=== PATIENT | female | born 1955 | race Caucasian/White ===

== ENCOUNTER 2021-09-08 16:55 | Emergency (ER) | payer OTHER, MEDICAID ==
[~2021-09-08] VITALS: Ht 165.1 cm; Wt 37.3 kg
[~2021-09-08 16:55] MED LIST: AZIT250T11 PO; DEXA6TAB1 PO; HEPA500056 SUBQ; VITC500 PO; ZINC220C28 PO
[2021-09-08 17:03] VITALS: BP 116/73
[2021-09-08 18:49] VITALS: BP 120/77
== END 2021-09-08 18:49 | disposition home or self-care (01) ==
LOC: MED 16:55
DX: R10.9 Unspecified abdominal pain (principal); R19.7 Diarrhea, unspecified; I10 Essential (primary) hypertension; Z98.890 Other specified postprocedural states; Z79.899 Other long term (current) drug therapy; Z79.2 Long term (current) use of antibiotics; Z88.8 Allergy status to other drugs, medicaments and biological substances
CPT/HCPCS: 99284

== ENCOUNTER 2021-12-10 00:36 | Inpatient (IN) | payer OTHER, MEDICAID ==
[~2021-12-10] VITALS: Ht 162.6 cm; Wt 58.5 kg
[2021-12-10 00:36] VITALS: BP 158/82
--- NOTE | 2021-12-10 00:44 | NUR ---
PT LISSETH AND TAKEN TO ER BED AT THIS TIME
--- NOTE | 2021-12-10 01:10 | NUR ---
ERMD AT BEDSIDE EXAMINING PT
--- NOTE | 2021-12-10 02:15 | NUR ---
66 Y/O FEMALE BIBA FROM SNF. C/O G-TUBE MALFUNCTION. PT PULLED OUT G-TUBE AND PT WAS SENT TO ER FOR G-TUBE REPLACEMENT OF "QUETA" TYPE G-TUBE. PT HAS COGNITIVE DISABILITIES AND NON AMBULATORY. A/OX0 NFP. UNLABORED BREATHING.
[2021-12-10 03:06] LABS: BASOPHILS % (AUTO) 0.2 % (0.0-2.0); EOSINOPHILS # (AUTO) 0.2 K/uL (0-0.4); EOSINOPHILS % (AUTO) 2.1 % (0.0-4.0); HEMATOCRIT 35.7 % (36-48); HEMOGLOBIN 12.1 g/dL (12.0-16.0); LYMPHOCYTES # (AUTO) 1.3 K/uL (2.5-16.5); LYMPHOCYTES % (AUTO) 13.9 % (20.5-51.1); MEAN CORPUSCULAR HEMOGLOBIN 33 pg (27-31); MEAN CORPUSCULAR HGB CONC 34 g/dL (33-37); MEAN CORPUSCULAR VOLUME 96.7 fL (80-94); MONOCYTES # (AUTO) 1.1 K/uL (0.8-1.0); MONOCYTES % (AUTO) 11.3 % (1.7-9.3); NEUTROPHILS # (AUTO) 6.7 K/uL (1.8-7.7); NEUTROPHILS % (AUTO) 72.5 % (42.2-75.2); PLATELET COUNT (AUTO) 237 K/uL (140-450); RED BLOOD CELL COUNT(AUTO) 3.69 MIL/uL (4.20-5.40); RED CELL DISTRIBUTION WIDTH 13.8 % (11.6-13.7); WHITE BLOOD COUNT (AUTO) 9.3 K/uL (4.8-10.8)
--- NOTE | 2021-12-10 03:35 | NUR ---
UNABLE TO REPLACE G-TUBE WITH EXACT REPLACEMENT. EQUIPMENT PLACED IN ORDER TO MAINTAIN STOMA.
[2021-12-10 03:47] LABS: ANION GAP 8.9 (8-16); CARBON DIOXIDE 33.8 mmol/L (21-32); CREATININE 0.6 mg/dL (0.6-1.3); POTASSIUM 4.7 mmol/L (3.5-5.1)
[2021-12-10] MEDS ORDERED: IMO2 PO (06:10)
[2021-12-10] MEDS ORDERED: LACT-103 PO (06:10)
[2021-12-10] MEDS ORDERED: LORA10TA19 PO (06:10)
[2021-12-10] MEDS ORDERED: FAMO-92 PO (06:10)
[2021-12-10] MEDS ORDERED: MELA10CA PO (06:10)
[2021-12-10] MEDS ORDERED: ONDA-188 PO (06:10)
[2021-12-10] MEDS ORDERED: SIMV-372 PO (06:10)
[2021-12-10] MEDS ORDERED: CALC-1646 PO (06:10)
[2021-12-10] MEDS ORDERED: MIRABULK PO (06:10)
[2021-12-10] MEDS ORDERED: KEN.025C TP (07:09)
[2021-12-10] MEDS ORDERED: DIPH25TA53 GT (07:09)
[2021-12-10] MEDS ORDERED: ROB PO (07:09)
[2021-12-10] MEDS ORDERED: ACET-2619 GT (07:09)
[2021-12-10] MEDS ORDERED: MENT1OIN22 TP (07:09)
[2021-12-10] MEDS ORDERED: DOCO1CRE TP (07:09)
--- NOTE | 2021-12-10 07:19 | NUR ---
Pt report given to RIAN MCDERMOTT. Transfer of care at this time.
--- NOTE | 2021-12-10 07:29 | NUR ---
RECEIVED REPORT FROM ENDER MODI. PT CALM AND AWAKE. VITALS STABLE
--- NOTE | 2021-12-10 07:43 | NUR ---
IV ESTABLISHED ON R AC 22G
[2021-12-10] MEDS ORDERED: ONDANSETRON 4 MG/2 ML VIAL IM/IVP PRN (08:05)
[2021-12-10] MEDS ORDERED: HYDROcodone/APAP 7.5/325 MG 1 TAB PO PRN (08:05)
[2021-12-10] MEDS ORDERED: guaiFENesin DM 200/20 MG-10 ML 10 ML UDC PO PRN (08:05)
[2021-12-10] MEDS ORDERED: ZOLPIDEM 5 MG TAB PO PRN (08:05)
[2021-12-10] MEDS ORDERED: ACETAMINOPHEN 325 MG TAB PO PRN (08:05)
[2021-12-10] MEDS ORDERED: HALOPERIDOL IM 5 MG/ML VIAL IM ONE (08:05)
[2021-12-10] MEDS ORDERED: LORazepam 2 MG/ML VIAL ONE (08:17)
[2021-12-10] MEDS ORDERED: LORazepam 1 MG TAB PO PRN (08:20)
[2021-12-10] MEDS ORDERED: DOCUSATE 100 MG/10 ML UDC PO PRN (08:20)
[2021-12-10] MEDS ORDERED: POTASSIUM CHLORIDE 20% 40 MEQ/15 ML UDC PO PRN (08:20)
[2021-12-10] MEDS: LORazepam 2 MG/ML VIAL IVP PRN ×2 (08:28→15:59)
[2021-12-10] MEDS: NACL 0.9% 1,000 ML IV SCH (08:37)
--- NOTE | 2021-12-10 09:02 | NUR ---
PT CALM AND SLEEPING, ON MONITOR. VSS
[2021-12-10 12:34] LABS: AMYLASE 32 U/L (25-115); CHOL/HDL RATIO 2.4 (1-4.5); FREE T4 (FREE THYROXINE) 2.41 ng/dL (0.76-1.46); HDL CHOLESTEROL 67 mg/dL (40-60); LDL (CALC) 81 mg/dL (60-100); LIPASE 136 U/L (73-393); MAGNESIUM 1.9 mg/dL (1.8-2.4); PHOSPHORUS 4.6 mg/dL (2.5-4.9); THYROID STIMULATING HORMONE 2.84 uIU/mL (0.34-3.74); TRIGLYCERIDES 62 mg/dL (30-150)
[2021-12-10 12:49] LABS: PROTHROMBIN TIME 10.2 secs (10.8-13.4)
--- NOTE | 2021-12-10 14:09 | NUR ---
PATIENT HAS BEEN SCREENED AND CATEGORIZED HIGH NUTRITION RISK. PATIENT WILL BE SEEN WITHIN 1-2 DAYS OF ADMISSION. / JOE[address]
--- NOTE | 2021-12-10 16:01 | NUR ---
Patient came from ER. Agitated and restless. AxOx0. Moaning. Not coherent. Ativan PRN IVP given.
--- NOTE | 2021-12-10 17:25 | NUR ---
P.T. NOTES P.T. EVAL COMPLETED; REFER TO EVAL FOR DETAILS.
--- NOTE | 2021-12-10 19:20 | NUR ---
RECEIVED PT FROM AM NURSE FOR CONTINUITY OF CARE.PT IS STABLE
[2021-12-10 20:00] VITALS: BP 129/60
--- NOTE | 2021-12-10 21:30 | NUR ---
ALL MEDICATIONS GIVEN AT THIS TIME,NO ADVERSE REACTIONS NOTED
--- NOTE | 2021-12-11 01:00 | NUR ---
PATIENT ASLEEP,BREATHING EVEN AND UNLABORED.ALL SAFETY MEASURES IN PLACE
[2021-12-11] MEDS: NACL 0.9% 1,000 ML IV SCH (01:34)
--- NOTE | 2021-12-11 03:00 | NUR ---
CLEANED AND REPOSITIONED THE PT ,TOLERATED WELL,NO DISTRESS NOTED
[2021-12-11 04:00] VITALS: BP 130/59
[2021-12-11] MEDS: LORazepam 2 MG/ML VIAL IVP PRN (04:03)
--- NOTE | 2021-12-11 06:00 | NUR ---
PT ASLEEP/ALL SAFETY MEASURES IN PLACE,NO DISTRESS NOTED
[2021-12-11 06:17] LABS: BASOPHILS % (AUTO) 0.3 % (0.0-2.0); EOSINOPHILS # (AUTO) 0.3 K/uL (0-0.4); EOSINOPHILS % (AUTO) 3.8 % (0.0-4.0); HEMATOCRIT 36.9 % (36-48); HEMOGLOBIN 12.3 g/dL (12.0-16.0); LYMPHOCYTES # (AUTO) 1.2 K/uL (2.5-16.5); LYMPHOCYTES % (AUTO) 14.7 % (20.5-51.1); MEAN CORPUSCULAR HEMOGLOBIN 33 pg (27-31); MEAN CORPUSCULAR HGB CONC 33 g/dL (33-37); MEAN CORPUSCULAR VOLUME 97.9 fL (80-94); MONOCYTES # (AUTO) 0.7 K/uL (0.8-1.0); MONOCYTES % (AUTO) 8.5 % (1.7-9.3); NEUTROPHILS # (AUTO) 6.2 K/uL (1.8-7.7); NEUTROPHILS % (AUTO) 72.7 % (42.2-75.2); PLATELET COUNT (AUTO) 216 K/uL (140-450); RED BLOOD CELL COUNT(AUTO) 3.77 MIL/uL (4.20-5.40); RED CELL DISTRIBUTION WIDTH 14.1 % (11.6-13.7); WHITE BLOOD COUNT (AUTO) 8.5 K/uL (4.8-10.8)
[2021-12-11 06:20] LABS: ANION GAP 12.5 (8-16); CARBON DIOXIDE 26.8 mmol/L (21-32); CREATININE 0.5 mg/dL (0.6-1.3); POTASSIUM 4.3 mmol/L (3.5-5.1)
[2021-12-11 08:00] VITALS: BP 120/67
[2021-12-11 08:08] LABS: T4 (THYROXINE) 8.6 ug/dL (4.5-12.0)
--- NOTE | 2021-12-11 09:15 | NUR ---
GOT REPORT FROM THE NIGHT NURSE, PT IS SLEEPING,NO SOB.[id number] Addendum: 12/11/21 at 0920 by Tejinder Strickland RN THE ABOVE REPORT WAS AT 0800
[2021-12-11] MEDS: DEXT 5% / NACL 0.9% 500 ML IV SCH ×2 (11:28→19:35)
[2021-12-11 12:00] VITALS: BP 120/67
[2021-12-11 16:00] VITALS: BP 115/62
--- NOTE | 2021-12-11 18:03 | NUR ---
THE DC ORDERED PUT IN BY MISTAKE, STOPPED IT NOW.[id number]
--- NOTE | 2021-12-11 19:30 | NUR ---
RECEIVED REPORT FROM DAY SHIFT NURSE FOR CONTINUITY OF CARE. PATIENT IS A&O X0. PATIENT IS ON ROOM AIR, BREATHING IS NORMAL WITH SYMMETRICAL RISE AND FALL OF CHEST. IV IS A 20G ON LFA, RUNNING D5 NS 0.9 AT 60ML. PATIENT IS SITTING UP IN BED MAKING INCOMPREHENSIBLE NOISES. PATIENT IS SAFE, STAYING IN BED. BED IS IN LOWEST POSITION, WHEELS LOCKED, CALL LIGHT IN PLACE. WILL CONTINUE TO OBSERVE PATIENT.
[2021-12-11 20:00] VITALS: BP 148/73
--- NOTE | 2021-12-11 22:48 | NUR ---
PATIENT HAD BM AND VOIDED. CHANGED PATIENT WITH ASSISTANCE FROM RIAN PULLIAM. PATIENT WAS CLEANED AND GIVEN NEW BEDDING AND GOWN. A NEW DIAPER WAS APPLIED TO PATIENT VIA CHEPE PADS. PATIENT COOPERATED DURING CLEANING AND CHANGE. BED IS IN LOWEST POSITION, WHEELS LOCKED, CALL LIGHT IN REACH. WILL CONTINUE TO OBSERVE PATIENT.
--- NOTE | 2021-12-12 | NUR ---
LOOKED IN ON PATIENT. PATIENT WAS SITTING UP IN BED. IVF WAS RUNNING AT 60ML. PATIENT'S BREATHING IS NORMAL WITH SYMMETRICAL RISE AND FALL OF CHEST. WILL CONTINUE TO OBSERVE PATIENT.
--- NOTE | 2021-12-12 01:00 | NUR ---
PATIENT SLEEPING. BREATHING IS NORMAL WITH SYMMETRICAL RISE AND FALL OF CHEST. BED IS IN LOWEST POSITION WITH WHEELS LOCKED AND CALL LIGHT IN PLACE. WILL CONTINUE TO OBSERVE PATIENT.
--- NOTE | 2021-12-12 02:53 | NUR ---
LOOKED IN ON PATIENT. PATIENT IS SLEEPING. IVF RUNNING D5 NS AT 60. BREATHING IS NORMAL WITH SYMMETRICAL RISE AND FALL OF CHEST. BED IS IN LOWEST POSITION, WHEELS LOCKED, CALL LIGHT IN PLACE. WILL CONTINUE TO OBSERVE PATIENT.
[2021-12-12 04:00] VITALS: BP 131/73
--- NOTE | 2021-12-12 04:30 | NUR ---
LOOKED IN ON PATIENT. PATIENT WAS SLEEPING. IVF RUNNING D5 NS AT 60/HR. BREATHING WAS NORMAL WITH SYMMETRICAL RISE AND FALL OF CHEST. BED IS IN LOWEST POSITION, WHEELS LOCKED, CALL LIGHT IN PLACE. WILL CONTINUE TO OBSERVE.
[2021-12-12] MEDS: DEXT 5% / NACL 0.9% 500 ML IV SCH ×3 (06:24→20:35)
--- NOTE | 2021-12-12 06:27 | NUR ---
CHANGED IV BAG. IVF RUNNING AT 60ML. PATIENT IS AWAKE, LYING IN BED. BED IS IN LOWEST POSITION, WHEELS LOCKED, CALL LIGHT IN PLACE. WILL CONTINUE TO OBSERVE.
--- NOTE | 2021-12-12 07:48 | NUR ---
ENDORSED CONTINUITY OF CARE TO DAY SHIFT NURSE JUAN MIGUEL. PATIENT IS STABLE.
[2021-12-12 10:03] LABS: BASOPHILS % (AUTO) 0.1 % (0.0-2.0); EOSINOPHILS # (AUTO) 0.3 K/uL (0-0.4); EOSINOPHILS % (AUTO) 3.5 % (0.0-4.0); HEMATOCRIT 36.8 % (36-48); HEMOGLOBIN 12.5 g/dL (12.0-16.0); LYMPHOCYTES # (AUTO) 1.4 K/uL (2.5-16.5); LYMPHOCYTES % (AUTO) 14.4 % (20.5-51.1); MEAN CORPUSCULAR HEMOGLOBIN 33 pg (27-31); MEAN CORPUSCULAR HGB CONC 34 g/dL (33-37); MEAN CORPUSCULAR VOLUME 96.7 fL (80-94); MONOCYTES # (AUTO) 0.9 K/uL (0.8-1.0); MONOCYTES % (AUTO) 9.2 % (1.7-9.3); NEUTROPHILS # (AUTO) 6.9 K/uL (1.8-7.7); NEUTROPHILS % (AUTO) 72.8 % (42.2-75.2); PLATELET COUNT (AUTO) 208 K/uL (140-450); RED CELL DISTRIBUTION WIDTH 14.3 % (11.6-13.7); WHITE BLOOD COUNT (AUTO) 9.5 K/uL (4.8-10.8)
[2021-12-12 10:08] LABS: ANION GAP 9.9 (8-16); CARBON DIOXIDE 29.5 mmol/L (21-32); CREATININE 0.5 mg/dL (0.6-1.3); POTASSIUM 4.4 mmol/L (3.5-5.1)
[2021-12-12 16:00] VITALS: BP 116/75
--- NOTE | 2021-12-12 17:15 | NUR ---
12/12/2021 RD INITIAL ASSESSMENT COMPLETED. PLEASE REFER TO NUTRITION ASSESSMENT UNDER CARE ACTIVITY FOR ESTIMATED NUTRITIONAL NEEDS. 1.WHEN/IF MEDICALLY APPROPRIATE, RECOMMEND JEVITY 1.2 WITH A GOAL RATE OF 45ML/HR -FWF 200 ML Q8H -START AT 20 ML/HR AND INCREASE BY 20ML Q4H UNTIL GOAL RATE OF 45ML/HR IS REACHED. THIS WILL PROVIDE 1296 KCAL AND 60 GRAMS OF PROTEIN, MEETING ~88% OF KCAL AND 100% OF PROTEIN NEEDS; ADEQUATE 2.MONITOR NUTRITION-RELATED LABS. 3.RD TO FOLLOW-UP IN 2-3 DAYS PATIENT IS HIGH RISK. ARA REGALADO RD
[2021-12-12 18:05] LABS: BILIRUBIN,URINE NEGATIVE (NEGATIVE); BLOOD, URINE 1+ (NEGATIVE); COLOR,URINE YELLOW (YELLOW); LEUKOCYTE ESTERASE ,URINE TRACE (NEGATIVE); NITRITE, URINE POSITIVE (NEGATIVE); UGLUCOSE NEGATIVE (NEGATIVE)
[2021-12-12 18:09] LABS: APPEARANCE,URINE HAZY (CLEAR)
--- NOTE | 2021-12-12 19:16 | NUR ---
ENDORSE PATIENT TO PM SHIFT NURSE WHILE PATIENT REST IN BED, STABLE, D5 NS INFUSING @60ML/HR VIA L. FOREARM PIV SITE.
[2021-12-12 19:24] LABS: RBC,URINE 0-5 /HPF (0-5); WBC,URINE 0-5 /HPF (0-5)
--- NOTE | 2021-12-12 19:30 | NUR ---
RECEIVED REPORT FROM DAY SHIFT NURSE. PATIENT IS A&O X0 (CONFUSED). PATIENT IS ON ROOM AIR, BREATHING IS NORMAL WITH SYMMETRICAL RISE AND FALL OF CHEST. IV IS A LFA 20G, RUNNING D5 NS @ 60ML. PATIENT IS SITTING UP IN BED MAKING INCOMPREHENSIBLE NOISES. BED IS IN LOWEST POSITION. WILL CONTINUE TO OBSERVE.
[2021-12-12 20:00] VITALS: BP 137/83
--- NOTE | 2021-12-12 20:30 | NUR ---
OBTAINED 2000 VITALS FROM PATIENT. VITALS WERE: TEMP 96.8, HR 62, BP 137/83, O2 96, RR 18. PATIENT WAS SITTING UP IN BED MAKING INCOMPREHENSIBLE NOISES. PATIENT WAS COOPERATIVE FOR VITALS AND WAS ABLE TO FOLLOW COMMANDS. BREATHING WAS NORMAL WITH SYMMETRICAL RISE AND FALL OF CHEST. BED WAS IN LOWEST POSITION WITH WHEELS LOCKED, CALL LIGHT IN PLACE. WILL CONTINUE TO OBSERVE.
--- NOTE | 2021-12-12 23:00 | NUR ---
LOOKED IN ON PATIENT. PATIENT WAS SLEEPING IN BED. PATIENT WAS NOT WET OR HAD BM. IVF WAS STILL RUNNING. BREATHING WAS NORMAL WITH SYMMETRICAL RISE AND FALL OF CHEST. WILL CONTINUE TO OBSERVE PATIENT.
--- NOTE | 2021-12-13 01:30 | NUR ---
LOOKED IN ON PATIENT. PATIENT WAS STILL SLEEPING. PATIENT WAS HAD NOT VOIDED OR HAD BOWEL MOVEMENT. IVF WAS STILL RUNNING. WILL CONTINUE TO OBSERVE PATIENT.
--- NOTE | 2021-12-13 03:20 | NUR ---
LOOKED IN ON PATIENT. PATIENT WAS SLEEPING AND HAD NOT VOIDED OR HAD BM. WILL CONTINUE TO OBSERVE PATIENT.
[2021-12-13] MEDS: DEXT 5% / NACL 0.9% 500 ML IV SCH (04:55)
--- NOTE | 2021-12-13 05:15 | NUR ---
PATIENT HAD VOIDED BUT NO BM. PATIENT WAS CHANGED AND CLEANED WITH ASSISTANCE FROM RIAN SETH. PATIENT'S BREATHING WAS STABLE. WILL CONTINUE TO OBSERVE PATIENT.
[2021-12-13 06:39] LABS: BASOPHILS % (AUTO) 0.1 % (0.0-2.0); EOSINOPHILS # (AUTO) 0.4 K/uL (0-0.4); EOSINOPHILS % (AUTO) 3.5 % (0.0-4.0); HEMATOCRIT 36.8 % (36-48); HEMOGLOBIN 12.4 g/dL (12.0-16.0); LYMPHOCYTES # (AUTO) 1.9 K/uL (2.5-16.5); LYMPHOCYTES % (AUTO) 17.1 % (20.5-51.1); MEAN CORPUSCULAR HEMOGLOBIN 33 pg (27-31); MEAN CORPUSCULAR HGB CONC 34 g/dL (33-37); MEAN CORPUSCULAR VOLUME 97.1 fL (80-94); MONOCYTES % (AUTO) 8.9 % (1.7-9.3); NEUTROPHILS # (AUTO) 7.6 K/uL (1.8-7.7); NEUTROPHILS % (AUTO) 70.4 % (42.2-75.2); PLATELET COUNT (AUTO) 219 K/uL (140-450); RED BLOOD CELL COUNT(AUTO) 3.79 MIL/uL (4.20-5.40); RED CELL DISTRIBUTION WIDTH 13.7 % (11.6-13.7); WHITE BLOOD COUNT (AUTO) 10.8 K/uL (4.8-10.8)
[2021-12-13 06:48] LABS: ANION GAP 11.8 (8-16); CARBON DIOXIDE 28.4 mmol/L (21-32); CREATININE 0.6 mg/dL (0.6-1.3); POTASSIUM 4.2 mmol/L (3.5-5.1)
--- NOTE | 2021-12-13 07:47 | NUR ---
ENDORSED CONTINUITY OF CARE TO DAY SHIFT. PATIENT IS STABLE.
[2021-12-13 08:00] VITALS: BP 106/57
--- NOTE | 2021-12-13 09:18 | NUR ---
PT. WITH LOW MIGUEL SCALE AT HIGH RISK, CONTINUE TO FOLLOW PRESSURE INJURY PREVENTION INTERVENTIONS. -POSITIONING: TURN AND REPOSITION PATIENT Q 2H OR SOONER USE PILLOWS TO KEEP BONY PROMINENCES FROM DIRECT CONTACT WITH SURFACES USE REPOSITIONING WEDGES TO PROVIDE 30-DEGREE ANGLE FOR SIDE LYING POSITIONS OFFLOADING OR FOAM DRESSING TO ALL TUBING TO PREVENT MEDICAL DEVICES RELATED PRESSURE INJURY -RE-EVALUATING AND MANAGING INCONTINENCE MONITOR SKIN CONDITION DURING POSITION CHANGE DO NOT MASSAGE REDNESS, BONY PROMINENCES FREQUENT ANNABELLE-CARE AND PROVIDE BARRIER CREAMS PRN IF SOILING MOISTURE CONTROL BY OFFER BED BUSTOS/URINAL /ABSORBENT PAD TO WICK AND HOLD MOISTURE KEEP SKIN DRY AND PROTECT FROM FRICTION -MANAGE FRICTION/SHEAR/MOBILITY KEEP HOB AT THE LOWEST LEVEL OF ELEVATION NO MORE THAN 30 DEGREE UNLESS OTHERWISE CONTRAINDICATED USE LIFT SHEET OR TRANSFER DEVICE TO MOVE PATIENT AND PREVENT LATERAL SHEER. PROTECT HEELS, ELBOWS BONY PROMINENCES WITH SKIN BERRIES OR FOAM DRESSING IF EXPOSED TO FRICTION OFFLOAD BILATERAL HEELS BY PLACING PILLOWS UNDER CALVES AT ALL TIMES, UNLESS OTHERWISE CONTRAINDICATED -PRESSURE REDISTRIBUTION SURFACE THERAPY ROB ISOFLEX MATTRESS -NUTRITION: PLEASE FOLLOW RD RECOMMENDATIONS AND OFFER NUTRITION SUPPLEMENTS IF ORDERED. PLEASE CONTACT WOUND CARE NURSE FOR ANY QUESTION AND CHANGE OF WOUND CONDITION.
[2021-12-13] MEDS ORDERED: DEXT 5% /NACL 0.9% 1,000 ML IV SCH (11:10)
--- NOTE | 2021-12-13 14:15 | NUR ---
DC PLANNING SARITA OUTREACHED TO [facility] TO GATHER COLLATERAL INFORMATION PATIENT IS NON-VERBAL . SARITA SPOKE WITH YOVANI (CAREGIVER) WHO REPORTS THAT PATIENT IS NON VERBAL AND REPORTS THAT PATIENTS FAMILY IS NOT ACTIVE IN CARE. PATIENT IS REPORTED TO BE WHEELCHAIR BOUND AND SELF PROPELS TO MOVE ABOUT. PATIENT REQUIRES ASSISTANCE WITH ADL'S. YOVANI UNABLE TO PROVIDE ADDITIONAL INFORMATION. YOVANI PROVIDED SARITA WITH TASHA (CHECK SERVICES CLERK, ) INFORMATION TO GATHER ADDITIONAL COLLATERAL INFORMATION. SARITA OUTREACHED TO TASHA , HOWEVER TASHA UNAVAIL. SARITA LEFT HIPPA COMPLIANT MESSAGE REQUESTING A RETURN PHONE CALL.
--- NOTE | 2021-12-13 14:57 | NUR ---
DC PLANNING: YUVAL RECEIVED A CALL FROM Lemuel YOUNGER FROM THE [facility], STATES SHE'S FOLLOWED THE PATIENT FOR 20 YEARS ([phone]). REQUESTED AN ST EVAL SHE IS NOT SURE PATIENT HAS HAD AN S.T. IN THE PAST AND ASKED THAT AN ST EVAL BE DONE HERE TO DETERMINE NEED FOR G-TUBE REPLACEMENT. THE PATIENTS BROTHER MALIKA IS THE PATIENTS MEDICAL CONSERVATOR. PATIENT WILL DO BETTER WITH THE ST EVAL IF SOMEONE FROM [facility] CAN BE HERE. IF Lissa YOUNGER IS NOTIFIED OF TIME AND DATE FOR ST EVAL SHE WILL ASK SOMEONE FROM THE FACILITY TO BE PRESENT. YUVAL WILL FOLLOW. Addendum: 12/14/21 at 1016 by Rosalinda Oh CM DC PLANNING; PATIENT S/P G-TUBE REPLACEMENT, DISCHARGE ORDER TO RETURN TO [facility] TODAY. YUVAL SPOKE WITH THE PATIENTS RN WHO WILL CALL THE FACILITY TO ASK THEM TO ARRANGE TRANSPORT AND TO GIVE REPORT. YUVAL WILL FOLLOW.
--- NOTE | 2021-12-13 15:42 | NUR ---
RECEIVE PHONE CONSENT FROM PATIENT'S BROTHER, MALIKA HOLT ([phone]). FOR PATIENT'S EGD GUIDE PEG-TUBE PLACEMENT PROCEDURE. OR CALLED FOR UPDATE STATUS. WILL F/U.
[2021-12-13 16:00] VITALS: BP 140/78
[2021-12-13] MEDS ORDERED: diphenhydrAMINE 50 MG/ML VIAL ONE (16:15)
[2021-12-13] MEDS ORDERED: fentaNYL citrate 0.05 MG/ML VIAL ONE (16:16)
[2021-12-13] MEDS ORDERED: MIDAZOLAM 5 MG/5 ML VIAL ONE (16:16)
[2021-12-13] MEDS: MIDAZOLAM 5 MG/5 ML VIAL IV ONE ×2 (16:31→17:33)
[2021-12-13] MEDS: fentaNYL citrate 0.05 MG/ML VIAL IVP ONE ×2 (16:32→17:33)
[2021-12-13] MEDS: diphenhydrAMINE 50 MG/ML VIAL IVP ONE ×2 (16:37→17:33)
--- NOTE | 2021-12-13 17:34 | NUR ---
PATIENT RETURN FROM OR W/ NEW PEG-TUBE IN PLACE, SLEEPING, MIGHT BE HANG OVER FROM MEDICATIONS (BENADRYL, VERSED, FENTANYL) GIVEN DURING PROCEDURE. ABDOMINAL-BINDER IN PLACE, PEG-TUBE AT L.SIDE OF ABDOMEN, PIV 22G AT R. HAND INFUSIN D5NS @60ML/HR. WILL CONTINUE TO MONITOR.
--- NOTE | 2021-12-13 19:41 | NUR ---
ENDORSE PATIENT TO PM SHIFT NURSE WHILE PATIENT REST IN BED, STABLE, PIV R. WRIST 24G INFUSING D5NS @60ML/HR, NEW PEG-TUBE AT L.SIDE OF ABDOMEN.
[2021-12-13 20:00] VITALS: BP 158/70
[2021-12-13] MEDS ORDERED: clonazePAM 0.5 MG TAB PO SCH (21:00)
[2021-12-13] MEDS: LORazepam 2 MG/ML VIAL IVP PRN (21:21)
--- NOTE | 2021-12-13 21:45 | NUR ---
RECEIVED PT FROM AM NURSE FOR CONTINUITY OF CARE. PT IS STABLE
--- NOTE | 2021-12-13 22:30 | NUR ---
STARTED JEVITY 1.2 AT 20 ML /HR, GOAL IS 50,WATER FLUSH 50ML Q6H.
--- NOTE | 2021-12-14 01:30 | NUR ---
PATIENT ASLEEP,BREATHING EVEN AND UNLABORED,NO DISTRESS NOTED
[2021-12-14 04:00] VITALS: BP 140/76
--- NOTE | 2021-12-14 06:00 | NUR ---
PATIENT ASLEEP, ALL SAFETY MEASURES IN PLACE, GTUBE INCREASED TO 30 CC/HR,TOLERATED WELL
[2021-12-14 06:54] LABS: BASOPHILS % (AUTO) 0.1 % (0.0-2.0); EOSINOPHILS # (AUTO) 0.1 K/uL (0-0.4); EOSINOPHILS % (AUTO) 0.5 % (0.0-4.0); HEMATOCRIT 33.7 % (36-48); HEMOGLOBIN 11.5 g/dL (12.0-16.0); LYMPHOCYTES % (AUTO) 8.1 % (20.5-51.1); MEAN CORPUSCULAR HEMOGLOBIN 33 pg (27-31); MEAN CORPUSCULAR HGB CONC 34 g/dL (33-37); MEAN CORPUSCULAR VOLUME 96.1 fL (80-94); MONOCYTES # (AUTO) 0.7 K/uL (0.8-1.0); NEUTROPHILS # (AUTO) 10.4 K/uL (1.8-7.7); NEUTROPHILS % (AUTO) 85.3 % (42.2-75.2); PLATELET COUNT (AUTO) 217 K/uL (140-450); RED BLOOD CELL COUNT(AUTO) 3.51 MIL/uL (4.20-5.40); RED CELL DISTRIBUTION WIDTH 13.4 % (11.6-13.7); WHITE BLOOD COUNT (AUTO) 12.2 K/uL (4.8-10.8)
[2021-12-14 07:01] LABS: ANION GAP 10.8 (8-16); CARBON DIOXIDE 27.5 mmol/L (21-32); CREATININE 0.6 mg/dL (0.6-1.3); POTASSIUM 3.3 mmol/L (3.5-5.1)
[2021-12-14] MEDS ORDERED: CEPH-588 PO (09:14)
--- NOTE | 2021-12-14 10:14 | NUR ---
PER WARPER CREELER - I HAVE TO CALL [facility] TO PROVIDE RIDE FOR THE PT .
--- NOTE | 2021-12-14 12:52 | NUR ---
GAVE REPORT TO GRANT LEOS - SHE SAID SHE THE ONE WILL CONTACT THE TRANSPORT FOR THE PT . SHE ASKED OUR CALL BACK NUMBER - SO THAT SHE WILL GIVE ME THE NAME OF TRANSPORT SHE WILL SEND TO WEALTH MANAGEMENT DIRECTOR THE PT . GRANT SAID THE TRANS PORT WILL BE HERE BET . 3 TO 4 PM TODAY . INFORMED CHARGE NURSE . Addendum: 12/14/21 at 1632 by Anny Starks RN THE WORD GRANT IN ABOVE NURSE'S NOTES IS AN ERROR , INSTEAD OF EDU MUNGUIA
[2021-12-14 13:21] VITALS: BP 122/65
--- NOTE | 2021-12-14 14:51 | NUR ---
PT IS FOR DISCHARGE BACK TO [facility] - AT 1431 DR. LUCAS PUT AN ORDER FOR ST EVAL - PT IS GOING TO DISCHARGE AND THE ST INSTRUCTIONAL SUPPORT SERVICES DIRECTOR IS MANJULAY LEFT - INFORMED DR. LUCAS.
--- NOTE | 2021-12-14 16:10 | NUR ---
PT BODY ENGINEER BY JOURNEYMAN MECHANIC NAMED MARIANA BOWSER - BY PRIVATE VAN , PT IS STABLE . DISCHARGED PACKET GIVEN . Addendum: 12/14/21 at 1636 by Anny Starks RN IV NEEDLE REMOVE - NEEDLE INTACT , MIN BLEEDING .
== END 2021-12-14 16:10 | DRG 393 ==
LOC: MED 00:36 → MTU 06:52
PROVIDERS: ADMIT Student in an Organized Health Care Education/Training Program; ATTEND Student in an Organized Health Care Education/Training Program
PROC: 0DH68UZ Insertion of Feeding Device into Stomach, Via Natural or Artificial Opening Endoscopic (ICD-10-PCS; principal; 2021-12-13 16:00)
DX: K94.23 Gastrostomy malfunction (principal); N17.0 Acute kidney failure with tubular necrosis; F72 Severe intellectual disabilities; N39.0 Urinary tract infection, site not specified; R62.7 Adult failure to thrive; I10 Essential (primary) hypertension; R62.50 Unspecified lack of expected normal physiological development in childhood; R13.10 Dysphagia, unspecified; E86.0 Dehydration; Z20.822 Contact with and (suspected) exposure to COVID-19; Y83.8 Other surgical procedures as the cause of abnormal reaction of the patient, or of later complication, without mention of misadventure at the time of the procedure; Z68.22 Body mass index [BMI] 22.0-22.9, adult; Z88.8 Allergy status to other drugs, medicaments and biological substances; Z79.899 Other long term (current) drug therapy; Y92.89 Other specified places as the place of occurrence of the external cause
CPT/HCPCS: 36415; 80048; 81001; 82150; 83036; 83690; 83735; 83880; 84100; 84436; 84439; 84443; 84479; 84484; 85025; 85610; 85730; 87081; 87086; 92526; 96372; 97112; 97163-GP; 99285; J0696; J1200; J1630; J2060; J2250; J3010; J7030; J7060